=== PATIENT | male | born 1950 | race Caucasian/White ===

== ENCOUNTER 2018-06-26 05:20 | Inpatient (IN) | payer BC, OTHER ==
[~2018-06-26] VITALS: Ht 185.4 cm; Wt 104.3 kg
[~2018-06-26 05:20] MED LIST: ASPI-524 PO; ATEN50TA PO; BUPR100T13 PO; FURO20TA4 PO; LISI-600 PO; OLAN5TAB3 PO; ZOLP10TA2 PO
[2018-06-26 05:24] VITALS: BP_SYST 126
--- NOTE | 2018-06-26 05:24 | NUR ---
Pt c/o dry cough, fever, SOB worsening since . Pt c/o chest pain with cough and deep breathing. VSS. Pt.'s at bedside.
--- NOTE | 2018-06-26 05:24 | NUR ---
Placed in room 7 . Placed on bench worker apprentice, blood pressure machine and pulse oximeter. To gown for exam. Side rails up.
--- NOTE | 2018-06-26 05:31 | NUR ---
ER Dr. Sawant at bedside examining patient.
[2018-06-26] MEDS ORDERED: IPRATROPIUM/ALBUTEROL SULFATE 3 ML AMPUL.NEB (DUONEB) INH ONE (05:45)
[2018-06-26] MEDS ORDERED: ASPIRIN 81 MG TAB.CHEW PO ONE (05:45)
--- NOTE | 2018-06-26 05:50 | NUR ---
# 20 gauge angiocath placed to LAC. Use of asceptic technique. Opsite placed over site. Blood return noted. Blood for lab drawn from site. Flushed with 10 cc of normal saline. No evidence of infiltration noted. Patient tolerated well.
--- NOTE | 2018-06-26 05:52 | NUR ---
RT at bedside to administer breathing tx.
--- NOTE | 2018-06-26 05:59 | NUR ---
Xray at bedside, pt tolerated well.
[2018-06-26 06:25] LABS: HEMATOCRIT 43.6 % (36-54); HEMOGLOBIN 14.5 g/dL (14.0-18.0); MEAN CORPUSCULAR HEMOGLOBIN 31 pg (27-31); MEAN CORPUSCULAR HGB CONC 33 % (32-36); MEAN CORPUSCULAR VOLUME 93 fL (79.0-98.0); PLATELET COUNT (AUTO) 161 K/uL (130-430); RED BLOOD CELL COUNT(AUTO) 4.72 MIL/uL (4.2-6.2); RED CELL DISTRIBUTION WIDTH 12.6 % (9.0-15.0); WHITE BLOOD COUNT (AUTO) 5.6 K/uL (4.8-10.8)
--- NOTE | 2018-06-26 06:26 | NUR ---
Pt continues to c/o chest pain at 5/10. Dr. Sawant notified.
[2018-06-26] MEDS ORDERED: ONDANSETRON HCL 4 MG/2 ML VIAL IVP ONE (06:30)
[2018-06-26] MEDS ORDERED: MORPHINE 4 MG/ML INJ. SYRINGE IVP ONE (06:30)
[2018-06-26 06:37] LABS: CALCIUM 8.9 mg/dL (8.4-11.0); CREATININE 1.24 mg/dL (0.55-1.30); POTASSIUM 4.2 mmol/L (3.5-5.1)
[2018-06-26 06:44] LABS: ALBUMIN 3.3 g/dL (3.4-4.8); TOTAL BILIRUBIN 0.6 mg/dL (0.0-1.0)
[2018-06-26 06:45] LABS: PROTHROMBIN TIME 10.7 SECS (9.5-12.5)
[2018-06-26] MEDS ORDERED: DIPHENHYDRAMINE INJ 50 MG/ML VIAL IVP ONE (06:45)
--- NOTE | 2018-06-26 06:52 | NUR ---
Pt medicated with zofran and morphine for complaint of CP 5/10. After administration of morphine pt states feeling itchy in upper arm above IV site. Redness and slight swelling also noted to upper arm. Dr. Sawant notified and orders for benadryl received and carried out. Will continue to monitor pt. Addendum: 06/26/18 at 0655 by [email or web address] No medication allergies noted per pt.
--- NOTE | 2018-06-26 07:08 | NUR ---
Pt pain reassessed at this time. Per pt pain has gone down to 1/10 on pain scale. Redness and swelling has gone down and pt denies any itching at this time. Will continue to monitor.
[2018-06-26 07:15] LABS: BASOPHILS % (MANUAL) 0 % (0-2); EOSINOPHILS % (MANUAL) 1 % (0-7); LYMPHOCYTES % (MANUAL) 16 % (20-46); MONOCYTES % (MANUAL) 9 % (0-11)
[2018-06-26] MEDS ORDERED: cefTRIAXone 1 GM IVPB PREMIX 50 ML IV ONE (07:15)
[2018-06-26] MEDS ORDERED: AZITHROMYCIN 500 MG in D5W 250 ML IV ONE (07:15)
--- NOTE | 2018-06-26 07:30 | NUR ---
Medication reconciliation completed with information provided by PT. Any prior medication reconciliation on file was reviewed and corrected.
[2018-06-26] MEDS ORDERED: HYDR-2489 PO (07:41)
[2018-06-26] MEDS ORDERED: AZITHROMYCIN 500 MG/VIAL (ZITHROMAX) IV ONE (07:44)
--- NOTE | 2018-06-26 08:00 | NUR ---
Patient will be admitted to care of Dr. Zamorano. Admitted to tele unit. Will go to room 111a. Belongings list completed. Summary report printed. Report will be given at bedside. Transfer to tele via ACLS protocol. Licensed nurse present. IV present no signs or symptoms of infiltration.
--- NOTE | 2018-06-26 08:04 | NUR ---
Admission Note Received patient from ER with diagnosis of pna. Initial Plan of Care discussed-patient verbalized understanding. Family at bedside. Oriented to room, call light, pain management and safety.
[2018-06-26 08:19] VITALS: BP_SYST 130
--- NOTE | 2018-06-26 09:15 | NUR ---
pt in bed awake alert-reoriented to call light use, denies any cp, sob refusing bed alarm at this time. encouraged to call using call light. bed in the lowest position.
[2018-06-26 10:52] VITALS: BP_SYST 114
[2018-06-26] MEDS ORDERED: IPRATROPIUM BROM 0.5 MG/2.5 ML VIAL.NEB (ATROVENT) INH PRN (12:00)
[2018-06-26] MEDS ORDERED: ATENOLOL 25 MG TABLET(TENORMIN) PO SCH (12:00)
[2018-06-26] MEDS ORDERED: LISINOPRIL 20 MG TABLET PO ONE (12:00)
[2018-06-26] MEDS ORDERED: FUROSEMIDE 20 MG TABLET PO ONE (12:00)
[2018-06-26] MEDS ORDERED: TEMAZEPAM 15 MG CAPSULE PO PRN (12:00)
[2018-06-26] MEDS ORDERED: ATENOLOL 25 MG TABLET(TENORMIN) PO ONE (12:00)
[2018-06-26] MEDS ORDERED: ALBUTEROL SULFATE 0.083% 2.5 MG/3 ML VIAL.NEB INH PRN (12:00)
[2018-06-26] MEDS: ALBUTEROL SULFATE 0.083% 2.5 MG/3 ML VIAL.NEB INH SCH ×2 (12:08→19:56)
[2018-06-26] MEDS: IPRATROPIUM BROM 0.5 MG/2.5 ML VIAL.NEB (ATROVENT) INH SCH ×2 (12:08→19:56)
[2018-06-26 12:14] VITALS: BP_SYST 114
--- NOTE | 2018-06-26 12:26 | NUR ---
CONSULT PULMONOLOGY [facility] DR WARE [phone] DR SUH ADMINISTRATIVE ASSISTANT DATA ENTRY S/W REINALDO OCHOA
--- NOTE | 2018-06-26 12:59 | NUR ---
atenolol, lasix, and lisinopril given at this time. vital signs stable. pt denies any chest pain/ shortness of breath
--- NOTE | 2018-06-26 14:37 | NUR ---
PATIENT RESTING: Patient resting quietly. No acute distress noted. Vital signs within normal range.
[2018-06-26] MEDS ORDERED: *LOVENOX 1MG/KG Q24H/PHARMACY XX ONE (15:15)
[2018-06-26] MEDS: PROMETHAZINE 6.25 MG/ CODEINE 10 MG/ 5 ML PO PRN ×2 (15:35→22:43)
[2018-06-26] MEDS: 0.45% NACL 1,000 ML IV SCH (15:35)
[2018-06-26 16:00] VITALS: BP_SYST 114
--- NOTE | 2018-06-26 17:00 | NUR ---
PATIENT RESTING: Patient resting quietly. No acute distress noted. Vital signs within normal range.
[2018-06-26] MEDS: ENOXAPARIN SODIUM 100 MG/ML SYRINGE SUBCUT SCH (17:30)
--- NOTE | 2018-06-26 19:15 | NUR ---
Opening notes Received report. Patient is resting comfortably in bed. No signs of distress noted. Breathing is even and unlabored. IV is patent and intact. Patient is refusing bed alarm at this time. Educated the patient to use call light when getting up. Safety precautions in place.
--- NOTE | 2018-06-26 19:20 | NUR ---
CLOSING NOTE ALL NEEDS MET THROUGH SHIFT, SAFETY MAINTAINED, CARE ENDORSED TO SECURITY MESSENGER.
[2018-06-26 20:00] VITALS: BP_SYST 111
--- NOTE | 2018-06-26 22:45 | NUR ---
Coughing Patient coughing. Gave phenergan 5 ml for cough. Educated the patient the action and side effects and to call for help if patient wants to get up. Patient verbalized understanding. Patient tolerated well. No signs of allergic reaction noted.
[2018-06-27] VITALS: BP_SYST 108
--- NOTE | 2018-06-27 00:20 | NUR ---
RN rounds Patient resting comfortably in bed. Vital signs stable. Breathing is even and unlabored. Dry cough noted. Provided patient with nonskid socks. Educated the benefits of using SCDs. Patient refused to use SCDs at this time.
[2018-06-27] MEDS: ALBUTEROL SULFATE 0.083% 2.5 MG/3 ML VIAL.NEB INH SCH ×4 (01:05→20:07)
[2018-06-27] MEDS: IPRATROPIUM BROM 0.5 MG/2.5 ML VIAL.NEB (ATROVENT) INH SCH ×4 (01:05→20:07)
[2018-06-27] MEDS: 0.45% NACL 1,000 ML IV SCH ×4 (01:09→23:36)
--- NOTE | 2018-06-27 02:40 | NUR ---
RN rounds Patient asleep in bed. No signs of acute distress or sob noted. Safety precautions in place.
--- NOTE | 2018-06-27 04:30 | NUR ---
RN rounds Patient is asleep in bed. No signs of distress noted. Breathing is even and unlabored. Safety precautions in place.
[2018-06-27] MEDS: cefTRIAXone 1 GM in D5W 50 ML IV SCH (05:18)
[2018-06-27] MEDS: AZITHROMYCIN 500 MG in NS 250 ML IV SCH (05:18)
[2018-06-27] MEDS: PROMETHAZINE 6.25 MG/ CODEINE 10 MG/ 5 ML PO PRN ×4 (05:18→20:27)
[2018-06-27] MEDS: ENOXAPARIN SODIUM 100 MG/ML SYRINGE SUBCUT SCH ×3 (05:23→17:51)
--- NOTE | 2018-06-27 05:42 | NUR ---
Scheduled meds Gave scheduled and prn cough medications. Educated the patient the action and side effects of medication. Patient verbalized understanding. Patient tolerated well. No signs of allergic reaction noted.
--- NOTE | 2018-06-27 06:41 | NUR ---
Closing notes Patient resting comfortably in bed. No signs of distress or sob noted. Breathing is even and unlabored. IV is patent and intact, infusing antibiotics. All needs met. Call light is with the patient. Patient refuses bed alarm, but agrees to call for help when wanting to get up. Safety precautions in place.
[2018-06-27 07:10] LABS: HEMATOCRIT 38.4 % (36-54); MEAN CORPUSCULAR HEMOGLOBIN 31 pg (27-31); MEAN CORPUSCULAR HGB CONC 34 % (32-36); MEAN CORPUSCULAR VOLUME 91 fL (79.0-98.0); PLATELET COUNT (AUTO) 124 K/uL (130-430); RED BLOOD CELL COUNT(AUTO) 4.24 MIL/uL (4.2-6.2); RED CELL DISTRIBUTION WIDTH 12.5 % (9.0-15.0); WHITE BLOOD COUNT (AUTO) 5.3 K/uL (4.8-10.8)
--- NOTE | 2018-06-27 07:27 | NUR ---
Opening Note patient resting in bed, awake and alert, HOB elevated, no complaints of pain at this time, breathing unlabored and symmetrical, safety precautions in place, educated patient on use of call light for assistance, verbalized understanding, call light and bedside table left within reach, will continue to monitor patient
[2018-06-27] MEDS: ASPIRIN 81 MG TAB.CHEW PO SCH (08:12)
[2018-06-27] MEDS: ATENOLOL 25 MG TABLET(TENORMIN) PO SCH (08:13)
[2018-06-27 08:19] VITALS: BP_SYST 129
--- NOTE | 2018-06-27 08:20 | NUR ---
Medication Administration educated patient regarding meds, verbalized understanding, tolerated well by mouth, has dry cough and cough medicine as PRN, educated him on plan of care, verbalized understanding, educated patient on use of call light for assistance, verbalized understanding, call light and bedside table left within reach, will continue to monitor patient
[2018-06-27] MEDS ORDERED: FUROSEMIDE 20 MG TABLET PO SCH (09:00)
[2018-06-27 10:06] LABS: BASOPHILS % (MANUAL) 0 % (0-2); EOSINOPHILS % (MANUAL) 1 % (0-7); LYMPHOCYTES % (MANUAL) 25 % (20-46); MONOCYTES % (MANUAL) 17 % (0-11)
--- NOTE | 2018-06-27 11:47 | NUR ---
PRN Cough Medicine administered at this time, educated patient regarding med, verbalized understanding, tolerated well, no signs of SOB, no complaints of pain, educated patient on use of call light for assistance, verbalized understanding, call light and bedside table left within reach, will continue to monitor patient
[2018-06-27 12:05] VITALS: BP_SYST 123
--- NOTE | 2018-06-27 14:47 | NUR ---
IV RE-INSERTION: Complaining of pain and leaking to IV site. Restarted on left hand g 22 b. Successful after 2 attempts. Resumed current IVF resumed. Will observe for any signs of infiltration.
--- NOTE | 2018-06-27 15:35 | NUR ---
Abdulkadir DAVIS for Orders Spoke with Dr. Zamorano, received orders for tylenol
[2018-06-27 15:45] VITALS: BP_SYST 129
[2018-06-27] MEDS ORDERED: ACETAMINOPHEN 650 MG/20.3 ML UDC GT PRN (15:45)
[2018-06-27] MEDS: ACETAMINOPHEN 325 MG TABLET PO PRN (16:08)
--- NOTE | 2018-06-27 16:13 | NUR ---
Tylenol/Cough Med administered at this time for headache and mild fever and PRN cough medication, educated patient regarding med, verbalized understanding, tolerated well, he is resting in bed, also provided ice pack, educated patient on use of call light for assistance, verbalized understanding, call light and bedside table left within reach, will continue to monitor patient
--- NOTE | 2018-06-27 18:51 | NUR ---
Closing Note patient resting in bed, awake and alert, denies pain at this time, no signs of SOB on room air, IV fluids infusing, site patent, safety precautions in place, educated patient on use of call light for assistance, verbalized understanding, call light and bedside table left within reach, will endorse to motor grader rough grade nurse
--- NOTE | 2018-06-27 19:42 | NUR ---
OPENING NOTE Patient resting in the bed. No acute distress. Respiration even and unlabored. AAO x 4. Denied of pain at this time. Skin warm and dry to touch. IV intact to left hand, no redness, no swelling, no drainage. On 1/2NS at 100ml/hr, infusing well. Discussed the safety issue, use call light when need help, and plan of care, verbally understanding. Safety measure maintained. Call light within reached. Bed locked in low position, side rails up, bed alarm on. Will continue to monitor.
[2018-06-27 19:50] VITALS: BP_SYST 127
--- NOTE | 2018-06-27 20:31 | NUR ---
PHENERGAN/CODEINE GIVEN Patient c/o cough, Phenergan/Codeine 5ml given as ordered. Safety measure maintained. Bed locked in low position, side rails up. Refused bed alarm, risk and benefit explained, verbally understanding.Call light within reached. Continue to monitor.
--- NOTE | 2018-06-27 22:37 | NUR ---
NEW IVF BAG CHANGED Patient resting in the bed comfortable. No acute distress. New IVF bag changed. IV intact, patent. Safety measure maintained. Bed locked in low position, side rails up. Call light within reached. Continue to monitor.
[2018-06-28] VITALS: BP_SYST 122
--- NOTE | 2018-06-28 00:50 | NUR ---
ROUND Patient resting in the bed with eyes closed. No acute distress. Respiration even and unlabored. IV intact, IVF infusing well. Safety measure maintained. Bed locked in low position, side rails up. Call light within reached. Continue to monitor.
[2018-06-28] MEDS: IPRATROPIUM BROM 0.5 MG/2.5 ML VIAL.NEB (ATROVENT) INH SCH ×4 (01:35→19:56)
[2018-06-28] MEDS: ALBUTEROL SULFATE 0.083% 2.5 MG/3 ML VIAL.NEB INH SCH ×4 (01:35→19:55)
--- NOTE | 2018-06-28 01:36 | NUR ---
ROUND Patient resting in the bed with eyes closed. No acute distress. Respiration even and unlabored. IV intact, IVF infusing well. Safety measure maintained. Call light within reached. Bed locked in low position, side rails up. Continue to monitor.
[2018-06-28] MEDS: PROMETHAZINE 6.25 MG/ CODEINE 10 MG/ 5 ML PO PRN ×2 (02:56→23:56)
--- NOTE | 2018-06-28 02:57 | NUR ---
PHENERGAN/CODEINE GIVEN Patient c/o cough, Phenergan/Codeine 5ml given as ordered. Safety measure maintained. Bed locked in low position, side rails up. Call light within reached. Continue to monitor.
--- NOTE | 2018-06-28 04:50 | NUR ---
ROUND Patient resting in the bed comfortable. No acute distress. Respiration even and unlabored. IV intact, IVF infusing well. Safety measure maintained. Call light within reached. Bed locked in low position, side rails up. Continue to monitor.
[2018-06-28] MEDS: AZITHROMYCIN 500 MG in NS 250 ML IV SCH (05:04)
[2018-06-28] MEDS: cefTRIAXone 1 GM in D5W 50 ML IV SCH (06:16)
[2018-06-28] MEDS: ENOXAPARIN SODIUM 100 MG/ML SYRINGE SUBCUT SCH ×2 (06:17→18:43)
--- NOTE | 2018-06-28 06:53 | NUR ---
CLOSING NOTE Patient resting in the bed. No acute distress. Respiration even and unlabored. Skin warm and dry to touch. IV intact to left hand, no redness, no swelling, no drainage. IVF infusing well. All needs met. Hourly rounding during shift. Safety measure maintained. Call light within reached. Bed locked in low position, side rails up. Refused bed alarm, risk and benefit explained, verbally understanding. Will endorse to morning shift nurse.
--- NOTE | 2018-06-28 08:00 | NUR ---
OPENING NOTE: MORNING REPORT WAS TAKEN AT BEDSIDE FROM NIGHT NURSE. PATIENT WAS AWAKE. PATIENT NOT COMPLAINING OF ANY DISTRESS. PATIENT ON ROOM AIR. FLUIDS ARE INFUSING. EDUCATED PATIENT ON IMPORTANCE OF BED ALARM BUT REFUSED TO HAVE IT ON. CALL LIGHT IS IN REACH. BED IN LOWEST POSITION WITH SIDE RAILS UP. WILL CONTINUE TO MONITOR.
[2018-06-28 08:05] VITALS: BP_SYST 143
[2018-06-28] MEDS: ACETAMINOPHEN 325 MG TABLET PO PRN (08:14)
[2018-06-28] MEDS: ASPIRIN 81 MG TAB.CHEW PO SCH (08:14)
[2018-06-28] MEDS: ATENOLOL 25 MG TABLET(TENORMIN) PO SCH (08:15)
--- NOTE | 2018-06-28 09:15 | NUR ---
NOTE: GAVE PATIENT MORNING MEDICATIONS EARLIER. REASSESSED PATIENT'S HEADACHE AND SAID IT WAS BETTER. PATIENT HAS NO FURTHER REQUESTS. WILL CONTINUE TO MONITOR.
[2018-06-28] MEDS: 0.45% NACL 1,000 ML IV SCH ×2 (11:35→22:02)
--- NOTE | 2018-06-28 11:42 | NUR ---
NOTE: PATIENT RESTING IN BED WITH NO COMPLAINANTS OF DISTRESS. HUNG NEW BAG OF FLUIDS. PATIENT HAS NO FURTHER REQUESTS. WILL CONTINUE TO MONITOR.
--- NOTE | 2018-06-28 14:04 | NUR ---
NOTE: PATIENT IS ASLEEP WITH NO SIGNS OF DISTRESS. FLUIDS ARE INFUSING. CALL LIGHT IS IN REACH. WILL CONTINUE TO MONITOR.
[2018-06-28 16:01] VITALS: BP_SYST 119
--- NOTE | 2018-06-28 16:57 | NUR ---
NOTE: PATIENT SITTING IN BED WITH NO SIGNS OF DISTRESS. PATIENT HAS NO REQUESTS AT MOMENT. WILL CONTINUE TO MONITOR.
--- NOTE | 2018-06-28 18:51 | NUR ---
CLOSING NOTE: GAVE PATIENT SCHEDULED MEDICATION. PATIENT NOT COMPLAINING OF ANY DISTRESS. GOT PATIENT SOME WATER. PATIENT ON ROOM AIR. PATIENT REFUSED BED ALARM THROUGH OUT SHIFT. BED IN LOWEST POSITION WITH CALL LIGHT IN REACH. SIDE RAILS ARE UP. WILL CONTINUE TO MONITOR AND GIVE REPORT TO PUBLIC SPACE ATTENDANT NURSE.
--- NOTE | 2018-06-28 19:20 | NUR ---
OPENING NOTE Patient resting in the bed and watching TV. No acute distress. Respiration even and unlabored. AAO x 4. Denied of pain at this time. Skin warm and dry to touch. IV intact to left hand, no redness, no swelling, no drainage. On 1/2NS at 100ml/hr, infusing well. Discussed the safety issue, use call light when need help, and plan of care, verbally understanding. Safety measure maintained. Call light within reached. Bed locked in low position, side rails up. Refused bed alarm, risk and benefit explained, verbally understanding. Will continue to monitor.
[2018-06-28 19:55] VITALS: BP_SYST 128
--- NOTE | 2018-06-28 21:20 | NUR ---
BATHROOM Patient ambulate to bathroom self with steady gait. No acute distress. Back to bed. Call light within reached. Safety measure maintained. Bed locked in low position, side rails up. Continue to monitor.
[2018-06-29] VITALS: BP_SYST 144
[2018-06-29] MEDS: IPRATROPIUM BROM 0.5 MG/2.5 ML VIAL.NEB (ATROVENT) INH SCH ×3 (01:25→15:48)
[2018-06-29] MEDS: ALBUTEROL SULFATE 0.083% 2.5 MG/3 ML VIAL.NEB INH SCH ×3 (01:25→15:48)
[2018-06-29] MEDS: AZITHROMYCIN 500 MG in NS 250 ML IV SCH (05:04)
[2018-06-29] MEDS: PROMETHAZINE 6.25 MG/ CODEINE 10 MG/ 5 ML PO PRN (05:04)
[2018-06-29] MEDS: cefTRIAXone 1 GM in D5W 50 ML IV SCH (06:30)
[2018-06-29] MEDS: ENOXAPARIN SODIUM 100 MG/ML SYRINGE SUBCUT SCH (06:31)
--- NOTE | 2018-06-29 06:50 | NUR ---
CLOSING NOTE Patient resting in the bed and watching TV. No acute distress. Respiration even and unlabored. Skin warm and dry to touch. IV intact to left hand, no redness, no swelling, no drainage. IVF infusing well. All needs met. Hourly rounding during shift. Safety measure maintained. Call light within reached. Bed locked in low position, side rails up. Refused bed alarm, risk and benefit explained, verbally understanding. Will endorse to morning shift nurse.
[2018-06-29 08:01] VITALS: BP_SYST 137
[2018-06-29] MEDS: ASPIRIN 81 MG TAB.CHEW PO SCH (08:11)
[2018-06-29] MEDS: ATENOLOL 25 MG TABLET(TENORMIN) PO SCH (08:12)
--- NOTE | 2018-06-29 08:13 | NUR ---
OPENING NOTE: MORNING REPORT WAS TAKEN FROM PEDIATRIC CLINICAL NURSE SPECIALIST NURSE. PATIENT IS ALERT AND ORIENTED. PATIENT NOT COMPLAINING OF ANY DISTRESS. PATIENT ON ROOM AIR. FLUIDS ARE INFUSING. EDUCATED PATIENT ON IMPORTANCE OF BED ALARM BUT REFUSED TO HAVE IT ON. BED IN LOWEST POSITION WITH CALL LIGHT IN REACH. 2 SIDE RAILS ARE UP. WILL CONTINUE TO MONITOR.
--- NOTE | 2018-06-29 09:59 | NUR ---
NOTE: PATIENT SITTING IN BED WITH NO SIGNS OF DISTRESS. IV WAS DISCONNECTED PER ORDER. PATIENT HAS NO FURTHER REQUESTS. WILL CONTINUE TO MONITOR.
[2018-06-29 12:00] VITALS: BP_SYST 130
[2018-06-29 12:42] VITALS: BP_SYST 130
--- NOTE | 2018-06-29 12:57 | NUR ---
NOTE: PATIENT SITTING IN BED WITH NO SIGNS OF DISTRESS. PATIENT WAITING FOR RIDE. WILL CONTINUE TO MONITOR.
--- NOTE | 2018-06-29 14:40 | NUR ---
NOTE: PATIENT IN BED WITH NO SIGNS OF DISTRESS. PAPERWORK SIGNED AND GIVEN PRESCRIPTION. PATIENT SAID RIDE SHOULD BE COMING SOON. WILL CONTINUE TO MONITOR.
--- NOTE | 2018-06-29 16:30 | NUR ---
D/C Patient Patient given medication reconciliation form and D/C instructions. Exit Care provided. Patient verbalized understanding. MD discussed with patient the results and treatment provided. Ambulatory with steady gait for discharge to home. Patient in stable condition, ID band removed. IV catheter removed, intact and dressing applied, no active bleeding. Rx given. Gave patient note for work. Patient educated on pain management. All belongings sent with patient. Patient wheeled out to front by HYDRO ELECTRIC STATION OPERATOR.
--- NOTE | 2018-07-05 14:51 | NUR ---
DISCHARGE FOLLOW UP PHONE CALL CASING IN LINE SETTER phone pt who states he was doing well. Pt states he was able to fill his prescription and was able to make an appointment with PCP. Pt states he does not have any questions/concerns about his discharge instructions at this time, but will call SS if any arises. No further SS follow up needed at this time.
== END 2018-06-29 16:30 | disposition home or self-care (01) | DRG 193 ==
LOC: SED 05:20 → STU 07:30
PROVIDERS: ADMIT Internal Medicine Hospice and Palliative Medicine; ATTEND Internal Medicine Hospice and Palliative Medicine
DX: J18.9 Pneumonia, unspecified organism (principal); J96.01 Acute respiratory failure with hypoxia; R65.10 Systemic inflammatory response syndrome (SIRS) of non-infectious origin without acute organ dysfunction; I12.9 Hypertensive chronic kidney disease with stage 1 through stage 4 chronic kidney disease, or unspecified chronic kidney disease; N18.9 Chronic kidney disease, unspecified; G89.29 Other chronic pain; Z86.718 Personal history of other venous thrombosis and embolism
CPT/HCPCS: 36415; 36600; 71045; 71250-TC; 80053; 82803-TC; 83605; 83880; 84484; 85007; 85027; 85379; 85610-TC; 85730-TC; 86710; 87040-TC; 93005; 93970; 94640; 94760; 96365; 96368; 96375; 99285; G0378; J0456; J0696; J1200; J1650; J2270; J2405; J7050; J7060; J7613; J7620